=== PATIENT | female | born 1990 | race Two or more races ===

== ENCOUNTER 2024-07-12 20:39 | Emergency (ER) | payer BC, OTHER, MEDICAID ==
[~2024-07-12] VITALS: Ht 162.6 cm; Wt 80.4 kg
[2024-07-12] MEDS: cloNIDine HCL 0.1 MG TAB PO ONE (21:33)
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
[2024-07-12 22:35] VITALS: TEMP 98.9
[2024-07-12 22:37] VITALS: O2SAT 97
[2024-07-12] MEDS: MORPHINE SULFATE INJ 2 MG/ml SYRG IM ONE (22:56)
[2024-07-12] MEDS ORDERED: IBUP-1456 PO (23:14)
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
[2024-07-12 23:27] VITALS: BP 148/100; PULSE 68; RESP 16
== END 2024-07-12 23:34 | disposition home or self-care (01) ==
LOC: ER 20:39
DX: S82.892A Other fracture of left lower leg, initial encounter for closed fracture (principal); I10 Essential (primary) hypertension; V89.2XXA Person injured in unspecified motor-vehicle accident, traffic, initial encounter; Y93.89 Activity, other specified; Y92.89 Other specified places as the place of occurrence of the external cause; Y99.8 Other external cause status
CPT/HCPCS: 29515; 73610; 73630; 96372; 99284; J2270